=== PATIENT | female | born 1955 | race Caucasian/White ===

== ENCOUNTER 2018-01-04 12:08 | Emergency (ER) | payer MEDICAID ==
[~2018-01-04] VITALS: Ht 157.5 cm; Wt 50.0 kg
[~2018-01-04 12:08] MED LIST: NOCURR
[2018-01-04] MEDS ORDERED: PERMETHRIN 5% 60 GM CREAM TP ONE (13:30)
[2018-01-04] MEDS ORDERED: DiphenhydrAMINE/ZINC ACET 30 GM CREAM TP ONE (13:45)
[2018-01-04 14:01] VITALS: BP 109/66
== END 2018-01-04 14:01 | disposition home or self-care (01) ==
LOC: EMS 12:10
DX: S40.862A Insect bite (nonvenomous) of left upper arm, initial encounter (principal); S40.861A Insect bite (nonvenomous) of right upper arm, initial encounter; S80.862A Insect bite (nonvenomous), left lower leg, initial encounter; S80.861A Insect bite (nonvenomous), right lower leg, initial encounter; S20.469A Insect bite (nonvenomous) of unspecified back wall of thorax, initial encounter; R59.1 Generalized enlarged lymph nodes; E78.00 Pure hypercholesterolemia, unspecified; I10 Essential (primary) hypertension; W57.XXXA Bitten or stung by nonvenomous insect and other nonvenomous arthropods, initial encounter; Y93.89 Activity, other specified; Y92.89 Other specified places as the place of occurrence of the external cause; Y99.8 Other external cause status
CPT/HCPCS: 99283